=== PATIENT | female | born 1985 | race Caucasian/White ===

== ENCOUNTER → 2017-10-08 | Outpatient (CLI) | payer OTHER ==
[~2017-10-08] MED LIST: CRAN1TAB2 PO; DOCU-116 PO; GABA100C PO; HYDR-2132 PO; MILK THISTLE PO; MO8B PO; MULT-1203 PO; SULF1TAB42 PO
== END ==
LOC: RAH 13:57
PROVIDERS: ATTEND Family Medicine
DX: Z87.442 Personal history of urinary calculi (principal)
CPT/HCPCS: 76770

== ENCOUNTER 2018-07-15 09:57 | Emergency (ER) | payer OTHER | END 2018-07-15 10:49 | disposition home or self-care (01) | LOC: EDH 09:57 | DX: S93.401A Sprain of unspecified ligament of right ankle, initial encounter (principal); Z98.890 Other specified postprocedural states; Z90.710 Acquired absence of both cervix and uterus; X58.XXXA Exposure to other specified factors, initial encounter; Y93.02 Activity, running; Y92.89 Other specified places as the place of occurrence of the external cause; Y99.8 Other external cause status | CPT/HCPCS: 73610 ==

== ENCOUNTER 2018-08-26 18:28 | Emergency (ER) | payer OTHER ==
[2018-08-26 19:19] LABS: BASOPHILS % (AUTO) 0.4 % (0.0-5.0); EOSINOPHILS % (AUTO) 0.1 % (0.0-8.0); HEMATOCRIT 38.6 % (36-48); LYMPHOCYTES % (AUTO) 10.5 % (21.0-51.0); MEAN CORPUSCULAR HEMOGLOBIN 30.6 pg (27.0-33.0); MEAN CORPUSCULAR HGB CONC 32.9 g/dL (32.0-36.0); MEAN CORPUSCULAR VOLUME 93.1 fL (79-99); PLATELET COUNT (AUTO) 137 K/uL (130-400); RED BLOOD CELL COUNT(AUTO) 4.15 MIL/uL (4.00-5.50); RED CELL DISTRIBUTION WIDTH 12.5 % (11.0-15.5); WHITE BLOOD COUNT (AUTO) 8.5 K/uL (4.8-10.8)
[2018-08-26 19:20] LABS: APPEARANCE,URINE Clear (CLEAR); BILIRUBIN,URINE Negative (NEGATIVE); COLOR,URINE Yellow (YELLOW); GLUCOSE, URINE (UA) Negative (NEGATIVE); KETONES,URINE Negative (NEGATIVE); LEUKOCYTE ESTERASE ,URINE Negative (NEGATIVE); NITRATE,URINE Negative (NEGATIVE); OCCULT BLOOD,URINE Negative (NEGATIVE); PROTEIN,URINE Negative (NEGATIVE); UROBILINOGEN,URINE 0.2 mg/dL (0.2-1.0)
[2018-08-26 19:23] LABS: CARBON DIOXIDE 21 mmol/L (21-32); CHLORIDE 100 mmol/L (101-111); CREATININE 0.9 mg/dL (0.5-1.5); GLOMERULAR FILTR. RATE CALC 76 mL/min (>60); GLUCOSE,RANDOM 124 mg/dL (70-105); POTASSIUM 3.3 mmol/L (3.5-5.1); SODIUM SERUM 137 mmol/L (136-145); UREA NITROGEN, BLOOD 7 mg/dL (7-18)
[2018-08-26 19:27] LABS: ALANINE AMINOTRANSFERASE 26 U/L (12-78); ALBUMIN 3.7 g/dL (3.5-5.0); ALCOHOL, BLOOD < 3 mg/dL (0-10); ASPARTATE AMINOTRANSFERASE 31 U/L (10-37); BILIRUBIN,TOTAL 0.4 mg/dL (0.2-1.0); LIPASE 245 U/L (114-286); TOTAL PROTEIN, SERUM 6.9 g/dL (6.0-8.3)
[2018-08-26 19:28] LABS: AMPHET/METH SCREEN,URINE NEGATIVE (NEGATIVE); BARBITURATE SCREEN, URINE NEGATIVE (NEGATIVE); BENZODIAZEPINES SCREEN,URINE NEGATIVE (NEGATIVE); CANNABINOID SCREEN,URINE NEGATIVE (NEGATIVE); COCAINE SCREEN,URINE NEGATIVE (NEGATIVE); HCG,QUAL RESULT NEGATIVE (NEGATIVE); OPIATE SCREEN,URINE NEGATIVE (NEGATIVE); PHENCYCLIDINE SCREEN,URINE NEGATIVE (NEGATIVE)
[2018-08-26] MEDS ORDERED: SODIUM CHLORIDE 0.9% 1000ML 1,000 ML IV ONE (19:48)
[2018-08-26] MEDS ORDERED: ONDANSETRON HCL 4 MG/2 ML VIAL ONE (19:56)
[2018-08-26] MEDS ORDERED: MORPHINE SULFATE 4 MG/1ML SYG ONE (19:59)
[2018-08-26 20:18] LABS: RAPID GROUP A STREP NEGATIVE (NEGATIVE)
== END 2018-08-26 21:36 | disposition home or self-care (01) ==
LOC: EDH 18:28
DX: K52.9 Noninfective gastroenteritis and colitis, unspecified (principal); Z90.710 Acquired absence of both cervix and uterus; Z88.0 Allergy status to penicillin
CPT/HCPCS: 36415; 74176; 80053; 80305; 81003; 81025; 83690; 84484; 85025; 87804 ×2; 87880; 93005; 96361; 96374; 96375; 99284; G0480; J2270; J2405; J7030

== ENCOUNTER → 2018-10-01 | Outpatient (CLI) | payer OTHER ==
[2018-10-01 10:15] LABS: BASOPHILS % (AUTO) 0.4 % (0.0-5.0); EOSINOPHILS % (AUTO) 1.3 % (0.0-8.0); HEMATOCRIT 43.1 % (36-48); MEAN CORPUSCULAR HEMOGLOBIN 30.1 pg (27.0-33.0); MEAN CORPUSCULAR HGB CONC 33.3 g/dL (32.0-36.0); MEAN CORPUSCULAR VOLUME 90.5 fL (79-99); NEUTROPHILS % (AUTO) 56.3 % (40.0-77.0); NUCLEATED RED BLOOD CELLS 0.1 % (0.0-0.19); PLATELET COUNT (AUTO) 174 K/uL (130-400); RED BLOOD CELL COUNT(AUTO) 4.76 MIL/uL (4.00-5.50); RED CELL DISTRIBUTION WIDTH 12.6 % (11.0-15.5); WHITE BLOOD COUNT (AUTO) 5.3 K/uL (4.8-10.8)
[2018-10-01 10:25] LABS: ALANINE AMINOTRANSFERASE 51 U/L (12-78); ALBUMIN 4.1 g/dL (3.5-5.0); ASPARTATE AMINOTRANSFERASE 50 U/L (10-37); BILIRUBIN,TOTAL 0.8 mg/dL (0.2-1.0); CARBON DIOXIDE 28 mmol/L (21-32); CHLORIDE 101 mmol/L (101-111); CREATININE 0.7 mg/dL (0.5-1.5); GLOMERULAR FILTR. RATE CALC 101 mL/min (>60); GLUCOSE,RANDOM 112 mg/dL (70-105); POTASSIUM 3.3 mmol/L (3.5-5.1); SODIUM SERUM 141 mmol/L (136-145); TOTAL PROTEIN, SERUM 7.6 g/dL (6.0-8.3); UREA NITROGEN, BLOOD 7 mg/dL (7-18)
[2018-10-01 10:28] LABS: CRP QUANTITATIVE < 2.00 mg/L (0.00-9.0)
[2018-10-01 11:13] LABS: ERYTHROCYTE SEDIMENTATION RATE 1 MM/HR (0-20)
== END | disposition home or self-care (01) ==
LOC: LAB 09:18
PROVIDERS: ATTEND Internal Medicine
DX: R10.30 Lower abdominal pain, unspecified (principal)
CPT/HCPCS: 36415; 80053; 82784; 83516; 83993; 85025; 85651; 86140; 87507; 87522

== ENCOUNTER 2018-10-03 08:08 | Day surgery (SDC) | payer OTHER ==
[~2018-10-03] VITALS: Ht 167.6 cm; Wt 59.2 kg
[~2018-10-03 08:08] MED LIST changes: +SODIUM CHLORIDE 0.9% 1000ML 1,000 ML IV ONE
[2018-10-03 08:24] VITALS: BP 120/83
[2018-10-03] MEDS ORDERED: PROPOFOL 10 MG/ML 20ML VIAL IV ONE ×2 (09:17)
[2018-10-03 09:35] VITALS: BP 92/55
[2018-10-03 09:40] VITALS: BP 93/57
[2018-10-03 09:46] VITALS: BP 105/71
[2018-10-03 09:56] VITALS: BP 112/81
== END 2018-10-03 10:18 | disposition home or self-care (01) ==
LOC: DAH 08:08 → ENDO 08:08
PROVIDERS: ATTEND Internal Medicine
DX: K64.0 First degree hemorrhoids (principal); B19.20 Unspecified viral hepatitis C without hepatic coma; Z88.0 Allergy status to penicillin; Z79.899 Other long term (current) drug therapy; Z98.890 Other specified postprocedural states; Z90.710 Acquired absence of both cervix and uterus; R19.4 Change in bowel habit
CPT/HCPCS: 45380; 88305; A4606; J2704 ×2; J7030

== ENCOUNTER 2021-04-02 14:11 | Emergency (ER) | payer OTHER ==
[~2021-04-02] VITALS: Ht 170.2 cm; Wt 59.0 kg
[~2021-04-02 14:11] MED LIST changes: -CRAN1TAB2 PO; -DOCU-116 PO; -HYDR-2132 PO; -MILK THISTLE PO; -MO8B PO; -MULT-1203 PO; -SODIUM CHLORIDE 0.9% 1000ML 1,000 ML IV ONE; -SULF1TAB42 PO
[2021-04-02 14:13] VITALS: BP 102/71
[2021-04-02] MEDS ORDERED: DOXY-336 PO (15:58)
[2021-04-02 17:10] VITALS: BP 110/76
== END 2021-04-02 17:29 | disposition home or self-care (01) ==
LOC: EDH 14:11
DX: U07.1 COVID-19 (principal); R04.2 Hemoptysis; Z88.2 Allergy status to sulfonamides; Z88.0 Allergy status to penicillin; Z79.899 Other long term (current) drug therapy
CPT/HCPCS: 71045